=== PATIENT | female | born 1980 | race Caucasian/White ===

== ENCOUNTER → 2016-09-18 08:33 | Outpatient (CLI) | payer MEDICAID | END | disposition home or self-care (01) | LOC: D.RAD 08:33 | DX: K21.9 Gastro-esophageal reflux disease without esophagitis (principal); K22.10 Ulcer of esophagus without bleeding ==

== ENCOUNTER 2016-10-31 15:36 | Emergency (ER) | payer MEDICAID | END 2016-10-31 16:55 | disposition home or self-care (01) | LOC: D.ER 15:36 | DX: M62.838 Other muscle spasm (principal); M79.605 Pain in left leg; F17.200 Nicotine dependence, unspecified, uncomplicated ==

== ENCOUNTER 2017-02-04 13:08 | Emergency (ER) | payer MEDICAID | END 2017-02-04 15:00 | disposition home or self-care (01) | LOC: D.ER 13:08 | DX: F32.9 Major depressive disorder, single episode, unspecified (principal); F41.9 Anxiety disorder, unspecified ==

== ENCOUNTER 2017-02-20 08:59 | Day surgery (SDC) | payer MEDICAID ==
[~2017-02-20] VITALS: Ht 160 cm; Wt 90.5 kg
--- NOTE | ~2017-02-20 | OP ---
PATIENT NAME: TALIA MCDONALD MEDICAL RECORD: [id number] LOCATION:[id number] ADMISSION DATE: SURGEON: EMY GRECO MD DATE OF OPERATION: 02/20/2017 PREOPERATIVE DIAGNOSES: 1. Intractable gastroesophageal reflux disease. 2. Hiatal hernia. POSTOPERATIVE DIAGNOSES: 1. Intractable gastroesophageal reflux disease. 2. Hiatal hernia with extensive intraabdominal adhesions. SURGEON: Emy Greco MD COASTAL AND ESTUARY SPECIALIST: None. BLOOD LOSS: Minimal. ANESTHESIA: General. COMPLICATIONS: None. The risks, possible complications and alternatives to procedure were explained to the patient. She elects to proceed. OPERATIVE COURSE: The patient was conveyed to the operating room electively on 02/20/2017. General anesthesia was induced by the anesthesia staff. The abdomen was sterilely prepped and draped. A small skin rocco was accomplished in the left upper quadrant. CO2 insufflation was begun. Once a sufficient pneumoperitoneum had been achieved, a 5-mm trocar was inserted at this site. Under direct internal vision utilizing a television camera, a 5-mm trocar was inserted in the epigastrium. A 5-mm trocar was inserted just cephalad to the umbilicus. Two 5-mm trocars were inserted in the left lower quadrant. There were extensive adhesions from the patient's prior operation. An adhesiolysis was undertaken and the amount of time for the adhesiolysis was 35 minutes. There was no intestinal injury during the adhesiolysis. This allowed me to place some additional trocars. Two 11-mm trocars were placed in the right side of the abdomen and a 5-mm trocar far laterally in the right side of the abdomen. Utilizing a coat-awning hanger supervisor type retractor the left lateral segment of the liver was elevated. I began my dissection of the phrenicoesophageal ligament, which was . I dissected up into the mediastinum. I pulled out 4 inches of esophagus into the intraabdominal compartment. A retrogastric and retroesophageal dissection was then carried out. Both crura were well identified. I used a Stratafix suture to suture the crura together posteriorly. I then brought some of the fundus of the stomach around behind the esophagus. A 3-stitch Gen fundoplication was performed utilizing Surgidac sutures. This included both sides of the stomach as well as a portion of the esophagus. There was no bleeding. The larger trocar sites were closed with the Mahesh-Phill suture closure device and 0 Vicryl sutures. The skin incisions OPERATIVE REPORT [id number] TALIA MCDONALD were all closed with interrupted 4-0 Vicryl sutures. The patient was then extubated and conveyed to post-anesthesia care unit where she was in stable condition. She will be placed in observation bed overnight and can be dismissed home tomorrow. TRANSINT:[id number] Voice Confirmation ID: [id number] DOCUMENT ID: [id number] EMY GRECO MD CC: SMILEY CHI MD and HOLLIE PITTMAN MD [id number] DICTATION DATE: 02/20/171756 STEEL DIE PRESS SET UP OPERATOR: 02/20/17 [address] [facility] [address] [place] [address]
[~2017-02-20 08:59] MED LIST: LEXAPRO10 MG PO; TENORMIN25 MG PO; XANAX0.25 MG PO
[2017-02-20 09:38] LABS: HEMATOCRIT 43.3 % (36.0-48.0); HEMOGLOBIN 14.9 g/dL (12-16); MCH 30.5 pg (26.0-34.0); MCHC 34.4 g/dL (31.0-37.0); MCV 88.7 fL (80.0-100.0); MEAN PLATELET VOLUME 11.4 fL (7.4-10.4); RBC 4.88 10x6/uL (4.00-5.40); RDW 12.6 % (11.5-14.5); WBC 14.3 10x3/uL (4.8-10.8)
[2017-02-20] MEDS ORDERED: HYDROCODON-ACE1 EAC7 PO (10:12)
[2017-02-20] MEDS ORDERED: VISTARIL25 MG (10:13)
[2017-02-20] MEDS ORDERED: BUTALB-APAP-CA1 EACH PO (10:14)
[2017-02-20 10:15] VITALS: BP 99/59; BMI 35.3
--- NOTE | 2017-02-20 17:47 | NUR ---
V\O TO REMOVE GALINDO CATHETOR IN RECOVERY BY DR. ARIAS. REMOVED GALINDO CATHETOR AT THIS TIME. PULLED 10ML FROM BALLON AND PULLED CATHETOR OUT INTACT. PT VOICED NO DISCOMFORT AT THE TIME. 80ML OF YELLOW URINE WAS IN BAG.
--- NOTE | 2017-02-20 18:22 | NUR ---
PATIENT TAKES HYDROCODONE ON A DAILY BASIS. HER PAIN WAS NOT CONTROLLED IN PACU.
[2017-02-20 18:28] VITALS: BP 103/68
[2017-02-21] VITALS: BP 102/55
[2017-02-21 04:00] VITALS: BP 94/60
--- NOTE | 2017-02-21 07:25 | NUR ---
PATIENT RECEIVED UP AMBULATING AT BEDSIDE. NO SIGNS OF DISTRESS NOTED. RATES PAIN 5/10. FAMILY AT BEDSIDE. DENIES NEEDS.
[2017-02-21 07:32] VITALS: BP 99/59; Ht 160 cm; Wt 90.5 kg
--- NOTE | 2017-02-21 08:30 | NUR ---
PATIENT ALERT IN HIGH JENNINGS POSITION. NO SIGNS OF DISTRESS NOTED. TOLERATING CLEAR LIQUID DIET WITHOUT DIFFICULTY. DENIES NEEDS. SIDE RAILS UP X2. BED IN LOW POSITION. CALL LIGHT IN REACH.
[2017-02-21 09:48] VITALS: BP 80/41
--- NOTE | 2017-02-21 10:20 | NUR ---
D/C TEACHING AND PRESCRIPTION FOR NORCO PROVIDED. STATES UNDERSTANDING. IV D/C WITH CATH TIP INTACT. SITE COVERED WITH GAUZE AND BANDAID. D/C HOME WITH FAMILY. TRANSFERRED DOWNSTAIRS VIA WHEELCHAIR WITH STAFF.
== END 2017-02-21 10:20 | disposition home or self-care (01) ==
LOC: D.OPS 08:59 → D.MS 08:59 → D.PAN 10:30 → D.OPS 10:30 → D.PAN 11:20 → D.OPS 11:20 → D.PAN 11:45 → D.MS 18:23 → D.OPS 02-21 10:20
PROVIDERS: Anesthesiology
DX: K44.9 Diaphragmatic hernia without obstruction or gangrene (principal); K21.9 Gastro-esophageal reflux disease without esophagitis; F17.200 Nicotine dependence, unspecified, uncomplicated; Z01.812 Encounter for preprocedural laboratory examination

== ENCOUNTER → 2017-04-28 | Emergency (ER) | payer MEDICAID ==
[2017-02-21 07:32] VITALS: BMI 35.3
[~2017-04-28] MED LIST changes: +BUTALB-APAP-CA1 EACH PO; +HYDROCODON-ACE1 EAC7 PO; +VISTARIL25 MG
[2017-04-28 14:20] LABS: BASOPHILS 0.3 % (0-2); EOSINOPHILS 1.8 % (0-7); HEMATOCRIT 42.2 % (36.0-48.0); HEMOGLOBIN 14.4 g/dL (12-16); IMMATURE GRANULOCYTES 0.3 % (0-5); LYMPHOCYTES 21.8 % (15-50); MCH 30.6 pg (26.0-34.0); MCHC 34.1 g/dL (31.0-37.0); MCV 89.6 fL (80.0-100.0); MONOCYTES 7.9 % (2-11); NEUTROPHILS 67.9 % (40-80); RBC 4.71 10x6/uL (4.00-5.40); RDW 12.7 % (11.5-14.5); WBC 11.4 10x3/uL (4.8-10.8)
[2017-04-28 14:29] LABS: PLATELET COUNT 215 10x3/uL (130-400)
[2017-04-28 15:44] LABS: APPEARANCE CLEAR (CLEAR); BILIRUBIN NEGATIVE (NEGATIVE); COLOR YELLOW (YELLOW); GLUCOSE NEGATIVE (NEGATIVE); KETONE NEGATIVE (NEGATIVE); LEUKOCYTE ESTERASE NEGATIVE (NEGATIVE); NITRITE NEGATIVE (NEGATIVE); PROTEIN NEGATIVE (NEGATIVE); UROBILINOGEN NORMAL (NORMAL)
== END | disposition home or self-care (01) ==
LOC: D.ER 13:33
PROVIDERS: Emergency Medicine
DX: R10.9 Unspecified abdominal pain (principal)